=== PATIENT | female | born 1935 | race Caucasian/White ===

== ENCOUNTER 2016-10-13 10:26 | Inpatient (IN) | payer MEDICARE ==
[2016-10-13 11:14] LABS: HEMATOCRIT 34.4 % (36.0-47.0); HEMOGLOBIN 10.8 g/dL (12.0-15.5); MEAN CORPUSCULAR HEMOGLOBIN 26.9 pg (27.0-33.4); MEAN CORPUSCULAR HGB CONC 31.3 g/dL (32.0-36.0); MEAN CORPUSCULAR VOLUME 86 fl (80-97); RED CELL DISTRIBUTION WIDTH 15.9 % (11.5-14.0); WHITE BLOOD COUNT 19.8 10^3/uL (4.0-10.5)
[2016-10-13] MEDS ORDERED: IPRATROPIUM/ALBUTEROL 0.5-2.5 MG/3 ML AMPUL NEB ONE (11:15)
[2016-10-13 11:19] LABS: PROTHROMBIN TIME 13.4 SEC (11.4-15.4)
--- NOTE | 2016-10-13 11:31 | RADIOLOGY REPORT (SQ) ---
EXAM DESCRIPTION: CHEST PA/LAT COMPLETED DATE/TIME: 10/13/2016 11:10 am REASON FOR STUDY: fever altered COMPARISON: 03/27/2016. NUMBER OF VIEWS: Two view. TECHNIQUE: Frontal and lateral radiographic views of the chest acquired. LIMITATIONS: None. FINDINGS: LUNGS AND PLEURA: Chronic interstitial scarring. No lobar infiltrates, masses or pneumoth orax. No pleural effusion. Attenuated blood vessels and flattened rosalind-diaphragms. MEDIASTINUM AND HILAR STRUCTURES: No masses. No contour abnormalities. HEART AND VASCULAR STRUCTURES: Heart normal in size and contour. No evidence for failure. BONES: No acute findings. HARDWARE: None in the chest. OTHER: No other significant finding. IMPRESSION: COPD. CHRONIC SCARRING. NO DEFINITE ACUTE RADIOGRAPHIC FINDING IN THE CHEST. TECHNICAL DOCUMENTATION: JOB ID: [id number] [employer]- All Rights Reserved
--- NOTE | 2016-10-13 11:33 | ER Document Report ---
ED General - General Chief Complaint: Breathing Difficulty Stated Complaint: RESPIRATORY DISTRESS Time Seen by Provider: 10/13/16 10:32 Mode of Arrival: Medic Information source: Patient, Relative, Emergency Med Personnel Notes: 81-year-old female presents with complaints of fever weakness shortness of breath, noted to have symptoms over the past few days. Pt on 2L nc at home, pt was hospice last year now dnr. TRAVEL OUTSIDE OF THE [place] IN LAST 30 DAYS: No - HPI Onset: Other Onset/Duration: Persistent Quality of pain: No pain Severity: Mild Pain Level: Denies Associated symptoms: Nonproductive cough, Fever, Shortness of breath, Weakness Exacerbated by: Denies Relieved by: Denies Similar symptoms previously: Yes Recently seen / treated by doctor: Yes - Related Data Allergies/Adverse Reactions: aspirin [Aspirin] Allergy (Verified 10/13/16 11:03) fluticasone propionate [From Advair Diskus] Allergy (Verified 10/13/16 11:03) latex Allergy (Verified 10/13/16 11:03) RASH Penicillins Allergy (Verified 10/13/16 11:03) salmeterol xinafoate [From Advair Diskus] Allergy (Verified 10/13/16 11:03) lorazepam [From Ativan] Adverse Reaction (Verified 10/13/16 11:03) Confusion Irritability midazolam HCl [From Versed] Adverse Reaction (Verified 10/13/16 11:03) Confusion Irritability Past Medical History - Social History Smoking Status: Former Smoker Cigarette use (# per day): Yes Chew tobacco use (# tins/day): No Smoking Education Provided: No Frequency of alcohol use: None Drug Abuse: None Family History: Hypertension - Past Medical History Cardiac Medical History: Reports: Hx Congestive Heart Failure, Hx Coronary Artery Disease, Hx Hypertension, Hx Pulmonary Embolism Pulmonary Medical History: Reports: Hx Asthma, Hx Bronchitis, Hx COPD, Hx Pneumonia Endocrine Medical History: Reports: Hx Hyperthyroidism - meds recently adjusted , recent wt. loss Renal/ Medical History: Reports: Hx Kidney Stones GI Medical History: Reports: Hx Diverticulitis, Hx Gastroesophageal Reflux Disease, Hx Hiatal Hernia, Hx Ulcer Musculoskeltal Medical History: Reports Hx Arthritis, Reports Hx Fibromyalgia Past Surgical History: Reports: Hx Appendectomy, Hx Cholecystectomy, Hx Hysterectomy, Hx Tonsillectomy - Immunizations Hx Diphtheria, Pertussis, Tetanus Vaccination: Yes Hx Pneumococcal Vaccination: 04/22/11 Review of Systems - Review of Systems Notes: PHYSICAL EXAMINATION: GENERAL: chronically ill appearing female in mild resp distress HEAD: Atraumatic, normocephalic. EYES: Pupils equal round and reactive to light, extraocular movements intact, conjunctiva are normal. ENT: Nares patent, oropharynx clear without exudates. Moist mucous membranes. NECK: Normal range of motion, supple without lymphadenopathy LUNGS: coarse wheezing all throughout HEART: Regular rate and rhythm without murmurs ABDOMEN: Soft, nontender, nondistended abdomen. No guarding, no rebound. No masses appreciated. Female : deferred Musculoskeletal: Normal range of motion, no pitting or edema. No cyanosis. NEUROLOGICAL: Cranial nerves grossly intact. Normal speech, normal gait. Normal sensory, motor exams PSYCH: Normal mood, normal affect. SKIN: Warm, Dry, normal turgor, no rashes or lesions noted. Physical Exam - Vital signs Vitals: Resp Pulse Ox 26 H 2 L 10/13/16 10:30 10/13/16 10:30 Course - Re-evaluation Re-evalutation: 10/13/16 11:33 Lab work imaging is pending at this time, patient septic workup pending 10/13/16 11:59 Chest x-ray is consistent with COPD, white count is noted to be elevated 19.8, patient's blood gas notes acidosis. I will admit patient to the hospitalist service 10/13/16 12:01 bipap ordered immediately - Vital Signs Vital signs: Temp Pulse Resp BP Pulse Ox 26 H 143/75 H 96 10/13/16 11:14 10/13/16 11:14 10/13/16 11:14 - Laboratory Result Diagrams: 10/13/16 10:43 10/13/16 10:43 Laboratory results interpreted by me: 10/13/16 10/13/16 10/13/16 10:43 10:43 11:30 WBC 19.8 H Hgb 10.8 L Hct 34.4 L MCH 26.9 L MCHC 31.3 L RDW 15.9 H Abs Neuts (Manual) 13.3 H Abs Monocytes (Manual) 2.4 H Carbonic Acid 1.82 H ABG pH 7.19 L* ABG pCO2 60.3 H ABG pO2 70.0 L ABG O2 Saturation 89.4 L Carbon Dioxide 21 L BUN 30 H Creatinine 1.50 H Est GFR ( Amer) 40 L Est GFR (Non-Af Amer) 33 L Glucose 131 H Direct Bilirubin 0.5 H Alkaline Phosphatase 167 H - Diagnostic Test Radiology reviewed: Image reviewed, Reports reviewed - copd exacerbation Critical Care Note - Critical Care Note Total time excluding time spent on procedures (mins): 33 Comments: 33 minutes of critical care time spent in direct contact evaluating and reevaluating the patient, treating symptoms, reviewing labs and studies and speaking with family and consultants excluding any procedures Discharge - Discharge Clinical Impression: DNR (do not resuscitate), Hypoxemia, Respiratory acidosis Pneumonia Qualifiers: Pneumonia type: due to unspecified organism Laterality: unspecified laterality Lung location: unspecified part of lung Qualified Code(s): J18.9 - Pneumonia, unspecified organism Condition: Critical Disposition: ADMITTED INPATIENT Admitting Provider: Hospitalist Unit Admitted: Telemetry
[2016-10-13 11:34] LABS: ALANINE AMINOTRANSFERASE 51 U/L (9-52); ALBUMIN 3.7 g/dL (3.5-5.0); ALKALINE PHOSPHATASE 167 U/L (38-126); ANION GAP 16 (5-19); ASPARTATE AMINO TRANSFERASE 26 U/L (14-36); BILIRUBIN,DIRECT 0.5 mg/dL (0.0-0.4); BILIRUBIN,TOTAL 0.6 mg/dL (0.2-1.3); BLOOD UREA NITROGEN 30 mg/dL (7-20); CALCIUM 9.6 mg/dL (8.4-10.2); CARBON DIOXIDE 21 mmol/L (22-30); CHLORIDE 103 mmol/L (98-107); GLUCOSE 131 mg/dL (75-110); POTASSIUM 4.3 mmol/L (3.6-5.0); SODIUM 139.7 mmol/L (137-145); TOTAL PROTEIN 6.6 g/dL (6.3-8.2)
[2016-10-13 11:38] LABS: BAND NEUTROPHILS % (MANUAL) 5 % (3-5); BASOPHILS % (MANUAL) 0 % (0-2); EOSINOPHILS % (MANUAL) 0 % (0-6); LYMPHOCYTES % (MANUAL) 21 % (13-45); TOTAL CELLS COUNTED 100
[2016-10-13 11:41] LABS: ANISOCYTOSIS SLIGHT; BURR CELLS SLIGHT; HYPOCHROMASIA SLIGHT; OVALOCYTES 1+; PLATELET CLUMPS PRESENT; POIKILOCYTOSIS 1+; POLYCHROMASIA SLIGHT; TARGET CELLS SLIGHT; TOXIC GRANULATION SLIGHT; TOXIC VACUOLATION PRESENT
[2016-10-13] MEDS ORDERED: NORMAL SALINE 1000 ML 1,000 ML IV ONE ×2 (11:41→11:55)
[2016-10-13 11:45] LABS: ARTERIAL BLOOD BASE EXCESS -6.1 mmol/L; ARTERIAL BLOOD O2 SATURATION 89.4 % (94-98)
[2016-10-13] MEDS ORDERED: LEVOFLOXACIN 750 MG/D5W RTU 150 ML IV ONE (11:55)
[2016-10-13] MEDS ORDERED: METHYLPREDNISOLONE INJ 125 MG/2 ML SDV IV ONE (11:58)
[2016-10-13] MEDS ORDERED: ONDANSETRON HCL INJ/PF 4 MG/2 ML SDV IV PRN (12:14)
[2016-10-13] MEDS ORDERED: MAG HYDROX/AL HYDROX/SIMETH SUSP 30 ML UDCUP PO PRN (12:14)
[2016-10-13] MEDS ORDERED: IPRATROPIUM/ALBUTEROL 0.5-2.5 MG/3 ML AMPUL NEB PRN (12:14)
[2016-10-13] MEDS ORDERED: ACETAMINOPHEN 650 MG SUPP.RECT PR PRN (12:14)
[2016-10-13] MEDS ORDERED: ENOXAPARIN SODIUM INJ 30 MG/0.3 ML DISP.SYRIN SUBCUT ONE (13:00)
--- NOTE | 2016-10-13 13:30 | EKG REPORT ---
SEVERITY:- ABNORMAL ECG - SINUS TACHYCARDIA BORDERLINE RIGHT AXIS DEVIATION LA ABNORMALITY : Confirmed by: Clemente Garcia MD 13-Oct-2016 13:29:07
--- NOTE | 2016-10-13 14:38 | PDOC H&P ---
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 Daughter notes over the last 3 days a decline in her overall status. She has had increasing somnolence , poor appetite and increasing confusion. She normally has a congested cough daily, and daughter relates this may be somewhat worse over the last 3 days. Daughter called EMS morning when she was unable to awaken her mother from sleep. Patient was noted to be hypercapnic with a PCO2 in the 60s and her presenting ABG. She is a DNR per daughter, she was placed on BiPAP therapy by the ER physician. She was noted to be tachycardic, with a heart rate in the 120 's, tachypneic and altered mental status on arrival. Past Medical History Cardiac Medical History: Reports: Congestive Heart Failure, Coronary Artery Disease, Hypertension, Pulmonary Embolism Pulmonary Medical History: Reports: Asthma, Bronchitis, Chronic Obstructive Pulmonary Disease (COPD), Pneumonia EENT Medical History: Reports: None Neurological Medical History: Reports: None Endocrine Medical History: Reports: None, Hyperthyroidism - meds recently adjusted, recent wt. loss Renal/ Medical History: Reports: None Malignancy Medical History: Reports: None GI Medical History: Reports: Diverticulitis, Gastroesophageal Reflux Disease, Hiatal Hernia Musculoskeltal Medical History: Reports: Arthritis, Fibromyalgia Skin Medical History: Reports: None Psychiatric Medical History: Reports: Tobacco Dependency Traumatic Medical History: Reports: None Hematology: Reports: Anemia - Chronic disease Past Surgical History Past Surgical History: Reports: Appendectomy, Cholecystectomy, Hysterectomy, Tonsillectomy Social History Information Source: Relative Lives with: Family Smoking Status: Current Some Day Smoker Cigarettes Packs Per Day: 0.5 Number of Years Smokin Last Time Smoked: yesterday Frequency of Alcohol Use: None Hx Recreational Drug Use: No Drugs: None Hx Prescription Drug Abuse: No - Advance Directive Resuscitation Status: Do Not Resuscitate Surrogate healthcare decision maker:: Wilma Saenz Family History Family History: COPD, Hypertension Parental Family History Reviewed: Yes Children Family History Reviewed: Yes Sibling(s) Family History Reviewed.: Yes Medication/Allergy Home Medications: Amlodipine Besylate [Norvasc 10 mg Tablet] 5 mg PO DAILY 10/13/16 Cyanocobalamin (Vitamin B-12) [Vitamin B-12 1000 mcg Tablet] 1,000 mcg PO DAILY 10/13/16 Cyproheptadine HCl [Periactin 4 mg Tablet] 4 mg PO DAILY 10/13/16 Esomeprazole Magnesium [Nexium] 40 mg PO DAILY 10/13/16 Ipratropium/Albuterol Sulfate [Combivent Respimat 4 gm Mdi] 1 puff IH QID Mirtazapine [Remeron] 15 mg PO ACHS 10/13/16 Oxycodone HCl/Acetaminophen [Percocet 5-325 mg Tablet] 1 tab PO TIDP PRN Ropinirole HCl [Requip] 0.5 mg PO QHS 10/13/16 Allergies/Adverse Reactions: aspirin [Aspirin] Allergy (Verified 10/13/16 11:03) fluticasone propionate [From Advair Diskus] Allergy (Verified 10/13/16 11:03) latex Allergy (Verified 10/13/16 11:03) RASH Penicillins Allergy (Verified 10/13/16 11:03) salmeterol xinafoate [From Advair Diskus] Allergy (Verified 10/13/16 11:03) lorazepam [From Ativan] Adverse Reaction (Verified 10/13/16 11:03) Confusion Irritability midazolam HCl [From Versed] Adverse Reaction (Verified 10/13/16 11:03) Confusion Irritability Review of Systems ROS unobtainable: Due to mental status Physical Exam Vital Signs: Temp Pulse Resp BP Pulse Ox 19 108/61 100 10/13/16 13:01 10/13/16 13:01 10/13/16 13:01 General appearance: PRESENT: no acute distress, thin, well-developed Head exam: PRESENT: atraumatic, normocephalic Eye exam: PRESENT: conjunctiva pink, EOMI, PERRLA. ABSENT: scleral icterus Ear exam: PRESENT: normal external ear exam Mouth exam: PRESENT: moist, tongue midline Neck exam: ABSENT: carotid bruit, JVD, lymphadenopathy, thyromegaly Respiratory exam: PRESENT: crackles, decreased breath sounds, symmetrical, unlabored. ABSENT: rales, rhonchi, wheezes Cardiovascular exam: PRESENT: RRR. ABSENT: diastolic murmur, rubs, systolic murmur Pulses: PRESENT: normal dorsalis pedis pul Vascular exam: PRESENT: normal capillary refill GI/Abdominal exam: PRESENT: normal bowel sounds, soft. ABSENT: distended, guarding, mass, organolmegaly, rebound, tenderness Rectal exam: PRESENT: deferred Extremities exam: PRESENT: full ROM. ABSENT: calf tenderness, clubbing, pedal edema Neurological exam: PRESENT: altered, CN II-XII grossly intact Psychiatric exam: PRESENT: flat affect, other - Nonverbal at the present time Skin exam: PRESENT: dry, skin tears, other - poor skin turgor Results Impressions: Chest X-Ray 10/13/16 10:32 IMPRESSION: COPD. CHRONIC SCARRING. NO DEFINITE ACUTE RADIOGRAPHIC FINDING IN THE CHEST. Assessment & Plan - Diagnosis (1) Sepsis Qualifiers: Sepsis type: sepsis due to unspecified organism Qualified Code(s): A41.9 - Sepsis, unspecified organism Is this a current diagnosis for this admission?: YesPlan: Patient is tachycardic, tachypneic, hypoxic with significant leucocytosis. Started on IV antibiotics and fluid resuscitation (2) Acute and chronic respiratory failure with hypercapnia Is this a current diagnosis for this admission?: YesPlan: BIPAP therapy, nebulizers, and IV steroids (3) COPD exacerbation Is this a current diagnosis for this admission?: YesPlan: IV steroids and nebulizer treatments, BIPAP support (4) Altered mental status Qualifiers: Altered mental status type: unspecified Qualified Code(s): R41.82 - Altered mental status, unspecified Is this a current diagnosis for this admission?: YesPlan: Secondary to hypercapnea and underlying dementia (5) Respiratory acidosis Is this a current diagnosis for this admission?: YesPlan: BIPAP therapy until mentation improves (6) Dementia Qualifiers: Dementia type: unspecified type Dementia behavioral disturbance: without behavioral disturbance Qualified Code(s): F03.90 - Unspecified dementia without behavioral disturbance Is this a current diagnosis for this admission?: Yes (7) Tobacco abuse Is this a current diagnosis for this admission?: Yes (8) Underweight due to inadequate caloric intake Is this a current diagnosis for this admission?: YesPlan: Diet will be liberalized with protein supplements. Daughter states she eats very little (9) DNR (do not resuscitate) Is this a current diagnosis for this admission?: YesPlan: Patient was on hospice service. Patient is a Do Not Resuscitate per daughter (10) Hypertension Qualifiers: Hypertension type: essential hypertension Qualified Code(s): I10 - Essential (primary) hypertension Is this a current diagnosis for this admission?: YesPlan: Continue home medications once mentation improves patient is presently normotensive - Time Time Spent: 50 to 70 Minutes Critical Time spent with patient: 25-34 minutes Medications reviewed and adjusted accordingly: Yes
[2016-10-13] MEDS: NORMAL SALINE 1000 ML 1,000 ML IV PRN (16:11)
[2016-10-13] MEDS: IPRATROPIUM/ALBUTEROL 0.5-2.5 MG/3 ML AMPUL NEB SCH ×2 (16:31→23:31)
[2016-10-13] MEDS ORDERED: METOPROLOL TARTRATE PF/INJ 5 MG/5 ML SDV IV ONE (17:53)
[2016-10-13] MEDS: DOCUSATE SODIUM 100 MG CAPSULE PO SCH (18:05)
[2016-10-13] MEDS: MIRTAZAPINE 15 MG TABLET PO SCH ×2 (18:14→22:58)
[2016-10-13 19:44] LABS: ARTERIAL BLOOD BASE EXCESS -5.4 mmol/L; ARTERIAL BLOOD O2 SATURATION 89.1 % (94-98)
[2016-10-13] MEDS: OXYCODONE-ACETAMINOPHEN 5-325 MG TABLET PO PRN (20:46)
[2016-10-13 21:43] LABS: APPEARANCE,URINE SLIGHTLY-CLOUDY; BILIRUBIN,URINE NEGATIVE (NEGATIVE); GLUCOSE, URINE NEGATIVE (NEGATIVE); KETONES,URINE NEGATIVE (NEGATIVE); LEUKOCYTE ESTERASE,URINE NEGATIVE (NEGATIVE); NITRITE,URINE NEGATIVE (NEGATIVE); PROTEIN,URINE 100 mg/dL (NEGATIVE); UROBILINOGEN,URINE NEGATIVE mg/dL (<2.0)
[2016-10-13] MEDS ORDERED: CEFEPIME 2 GM/D5W RTU 50 ML IV SCH (22:00)
[2016-10-13] MEDS ORDERED: (PENDING PHARMACY ID) (Ropinirole Hcl [Requip] 0.5 MG) PO SCH (22:00)
[2016-10-13] MEDS: ROPINIROLE HCL 0.25 MG TABLET PO SCH (22:58)
[2016-10-13] MEDS: CEFEPIME HCL 2 GM in DEXTROSE 5%-WATER 50 ML IV SCH (23:02)
[2016-10-13] MEDS: METHYLPREDNISOLONE INJ 40 MG/1 ML SDV IV SCH (23:08)
[2016-10-14] MEDS: NORMAL SALINE 1000 ML 1,000 ML IV PRN (03:08)
[2016-10-14 04:44] LABS: ABSOLUTE MONOCYTES (AUTO) 0.8 10^3/uL (0.1-1.4); ABSOLUTE NEUT (AUTO) 10.9 10^3/uL (1.7-8.2); BASOPHILS % (AUTO) 0.1 % (0-2); HEMATOCRIT 27.1 % (36.0-47.0); HGB HCT DIFFERENCE -1.6; LYMPHOCYTES % (AUTO) 7.6 % (13-45); MEAN CORPUSCULAR HEMOGLOBIN 26.4 pg (27.0-33.4); MEAN CORPUSCULAR HGB CONC 31.3 g/dL (32.0-36.0); MEAN CORPUSCULAR VOLUME 84 fl (80-97); MONOCYTES % (AUTO) 6.5 % (3-13); RED BLOOD COUNT 3.21 10^6/uL (3.72-5.28); RED CELL DISTRIBUTION WIDTH 15.8 % (11.5-14.0); SEGMENTED NEUTROPHILS % (AUTO) 85.8 % (42-78); WHITE BLOOD COUNT 12.7 10^3/uL (4.0-10.5)
[2016-10-14 04:57] LABS: ANION GAP 11 (5-19); BLOOD UREA NITROGEN 31 mg/dL (7-20); CALCIUM 9.4 mg/dL (8.4-10.2); CARBON DIOXIDE 20 mmol/L (22-30); CHLORIDE 110 mmol/L (98-107); CREATININE RESULT 1.34 mg/dL (0.52-1.25); GLUCOSE 144 mg/dL (75-110); MAGNESIUM 1.6 mg/dL (1.6-2.3); POTASSIUM 4.5 mmol/L (3.6-5.0); SODIUM 140.5 mmol/L (137-145)
[2016-10-14 05:00] LABS: HEMOGLOBIN 8.5 g/dL (12.0-15.5)
[2016-10-14] MEDS: OXYCODONE-ACETAMINOPHEN 5-325 MG TABLET PO PRN ×3 (07:04→22:52)
[2016-10-14] MEDS: METHYLPREDNISOLONE INJ 40 MG/1 ML SDV IV SCH ×3 (07:08→21:17)
[2016-10-14] MEDS: ENOXAPARIN SODIUM INJ 30 MG/0.3 ML DISP.SYRIN SUBCUT SCH (08:23)
[2016-10-14] MEDS: IPRATROPIUM/ALBUTEROL 0.5-2.5 MG/3 ML AMPUL NEB SCH ×2 (08:26→16:44)
[2016-10-14] MEDS: DOCUSATE SODIUM 100 MG CAPSULE PO SCH ×2 (09:49→17:26)
[2016-10-14] MEDS: AMLODIPINE BESYLATE 10 MG TABLET PO SCH (09:50)
[2016-10-14] MEDS: CYANOCOBALAMIN (VITAMIN B-12) 1,000 MCG TABLET PO SCH (09:50)
[2016-10-14] MEDS: CEFEPIME HCL 2 GM in DEXTROSE 5%-WATER 50 ML IV SCH (09:51)
[2016-10-14] MEDS ORDERED: CYPROHEPTADINE HCL 4 MG TABLET PO SCH (10:00)
--- NOTE | 2016-10-14 11:16 | PDOC PROGRESS REPORT ---
Subjective Progress Note for:: 10/14/16 Subjective:: Patient seen on morning rounds. She is off BIPAP at the present time, on nasal cannula eating breakfast. She states her breathing is better than yesterday. She is much more alert and no longer tachypneic or tachycardic. She remains confused which is her baseline mentation. Review of systems is unobtainable due to mentation. Physical Exam Vital Signs: Temp Pulse Resp BP Pulse Ox 98.4 F 90 24 H 124/62 94 10/14/16 08:00 10/14/16 08:27 10/14/16 08:27 10/14/16 08:00 10/14/16 08:27 Intake & Output 10/13/16 10/14/16 10/15/16 06:59 06:59 06:59 Intake Total 250 Balance 250 Weight 40 kg General appearance: PRESENT: no acute distress, thin, well-developed Head exam: PRESENT: atraumatic, normocephalic Eye exam: PRESENT: conjunctiva pink, EOMI, PERRLA. ABSENT: scleral icterus Ear exam: PRESENT: normal external ear exam Mouth exam: PRESENT: moist, tongue midline Neck exam: ABSENT: carotid bruit, JVD, lymphadenopathy, thyromegaly Respiratory exam: PRESENT: decreased breath sounds, rhonchi, symmetrical, unlabored Cardiovascular exam: PRESENT: RRR. ABSENT: diastolic murmur, rubs, systolic murmur Pulses: PRESENT: normal dorsalis pedis pul Vascular exam: PRESENT: normal capillary refill GI/Abdominal exam: PRESENT: normal bowel sounds, soft. ABSENT: distended, guarding, mass, organolmegaly, rebound, tenderness Rectal exam: PRESENT: deferred Extremities exam: PRESENT: full ROM. ABSENT: calf tenderness, clubbing, pedal edema Neurological exam: PRESENT: alert, altered, oriented to person, CN II-XII grossly intact Psychiatric exam: PRESENT: appropriate affect, normal mood. ABSENT: homicidal ideation, suicidal ideation Skin exam: PRESENT: dry, intact, warm. ABSENT: cyanosis, rash Results Laboratory Results: 10/14/16 04:24 10/14/16 04:24 10/13/16 10/13/16 10/14/16 19:30 21:15 04:24 WBC 12.7 H RBC 3.21 L Hgb 8.5 L D Hct 27.1 L MCV 84 MCH 26.4 L MCHC 31.3 L RDW 15.8 H Plt Count 268 Seg Neutrophils % 85.8 H Lymphocytes % 7.6 L Monocytes % 6.5 Eosinophils % 0.0 Basophils % 0.1 Absolute Neutrophils 10.9 H Absolute Lymphocytes 1.0 Absolute Monocytes 0.8 Absolute Eosinophils 0.0 Absolute Basophils 0.0 Carbonic Acid 1.44 H HCO3/H2CO3 Ratio 14:1 ABG pH 7.27 L ABG pCO2 47.9 H ABG pO2 63.6 L ABG HCO3 21.4 ABG O2 Saturation 89.1 L ABG Base Excess -5.4 FiO2 30% Sodium Potassium Chloride Carbon Dioxide Anion Gap BUN Creatinine Est GFR ( Amer) Est GFR (Non-Af Amer) Glucose Calcium Magnesium Urine Color YELLOW Urine Appearance SLIGHTLY-CLOUDY Urine pH 5.0 Ur Specific [place] 1.010 Urine Protein 100 H Urine Glucose (UA) NEGATIVE Urine Ketones NEGATIVE Urine Blood NEGATIVE Urine Nitrite NEGATIVE Ur Leukocyte Esterase NEGATIVE Urine WBC (Auto) 2 Urine RBC (Auto) 1 10/14/16 04:24 WBC RBC Hgb Hct MCV MCH MCHC RDW Plt Count Seg Neutrophils % Lymphocytes % Monocytes % Eosinophils % Basophils % Absolute Neutrophils Absolute Lymphocytes Absolute Monocytes Absolute Eosinophils Absolute Basophils Carbonic Acid HCO3/H2CO3 Ratio ABG pH ABG pCO2 ABG pO2 ABG HCO3 ABG O2 Saturation ABG Base Excess FiO2 Sodium 140.5 Potassium 4.5 Chloride 110 H Carbon Dioxide 20 L Anion Gap 11 BUN 31 H Creatinine 1.34 H Est GFR ( Amer) 46 L Est GFR (Non-Af Amer) 38 L Glucose 144 H Calcium 9.4 Magnesium 1.6 Urine Color Urine Appearance Urine pH Ur Specific [place] Urine Protein Urine Glucose (UA) Urine Ketones Urine Blood Urine Nitrite Ur Leukocyte Esterase Urine WBC (Auto) Urine RBC (Auto) Impressions: Chest X-Ray 10/13/16 10:32 IMPRESSION: COPD. CHRONIC SCARRING. NO DEFINITE ACUTE RADIOGRAPHIC FINDING IN THE CHEST. Assessment & Plan - Diagnosis (1) Sepsis Qualifiers: Sepsis type: sepsis due to unspecified organism Qualified Code(s): A41.9 - Sepsis, unspecified organism Is this a current diagnosis for this admission?: YesPlan: Patient is tachycardic (2) Acute and chronic respiratory failure with hypercapnia Is this a current diagnosis for this admission?: YesPlan: BIPAP therapy, nebulizers, and IV steroids (3) COPD exacerbation Is this a current diagnosis for this admission?: YesPlan: IV steroids and nebulizer treatments, BIPAP support (4) Altered mental status Qualifiers: Altered mental status type: unspecified Qualified Code(s): R41.82 - Altered mental status, unspecified Is this a current diagnosis for this admission?: YesPlan: Secondary to hypercapnea and underlying dementia (5) Respiratory acidosis Is this a current diagnosis for this admission?: YesPlan: BIPAP therapy until mentation improves (6) Dementia Qualifiers: Dementia type: unspecified type Dementia behavioral disturbance: without behavioral disturbance Qualified Code(s): F03.90 - Unspecified dementia without behavioral disturbance Is this a current diagnosis for this admission?: Yes (7) Tobacco abuse Is this a current diagnosis for this admission?: Yes (8) Underweight due to inadequate caloric intake Is this a current diagnosis for this admission?: YesPlan: Diet will be liberalized with protein supplements. Daughter states she eats very little. Nutritional supplements provided with each meal (9) DNR (do not resuscitate) Is this a current diagnosis for this admission?: YesPlan: Patient was on hospice service. Patient is a Do Not Resuscitate per daughter (10) Hypertension Qualifiers: Hypertension type: essential hypertension Qualified Code(s): I10 - Essential (primary) hypertension Is this a current diagnosis for this admission?: YesPlan: Continue home medications once mentation improves patient is presently normotensive - Time Time Spent with patient: 25-34 minutes Medications reviewed and adjusted accordingly: Yes Anticipated discharge: Home with Homehealth
[2016-10-14] MEDS: MIRTAZAPINE 15 MG TABLET PO SCH (11:52)
[2016-10-14] MEDS: GUAIFENESIN SYRP 200 MG/10 ML UDC PO PRN (21:16)
[2016-10-14] MEDS: ROPINIROLE HCL 0.25 MG TABLET PO SCH (21:16)
[2016-10-15] MEDS: IPRATROPIUM/ALBUTEROL 0.5-2.5 MG/3 ML AMPUL NEB SCH ×4 (00:16→23:54)
[2016-10-15] MEDS: OXYCODONE-ACETAMINOPHEN 5-325 MG TABLET PO PRN ×2 (05:59→16:40)
[2016-10-15] MEDS: METHYLPREDNISOLONE INJ 40 MG/1 ML SDV IV SCH (05:59)
--- NOTE | 2016-10-15 08:25 | PDOC PROGRESS REPORT ---
Subjective Progress Note for:: 10/15/16 Subjective:: Patient seen on morning rounds. She is out of bed sitting in bedside chair. She states her breathing is better than yesterday. She has a productive cough with thick yellow mucous being raised. She is much more alert and no longer tachypneic or tachycardic. She is refusing BIPAP therapy. She remains confused which is her baseline mentation. Review of systems is otherwise unremarkable. Physical Exam Vital Signs: Temp Pulse Resp BP Pulse Ox 98.9 F 105 H 26 H 146/74 H 88 L 10/15/16 05:04 10/15/16 05:04 10/15/16 05:04 10/15/16 05:04 10/15/16 05:04 Intake & Output 10/14/16 10/15/16 10/16/16 06:59 06:59 06:59 Intake Total 250 2113 Balance 250 2113 Weight 40 kg 41.2 kg General appearance: PRESENT: no acute distress, thin, well-developed Head exam: PRESENT: atraumatic, normocephalic Eye exam: PRESENT: conjunctiva pink, EOMI, PERRLA. ABSENT: scleral icterus Ear exam: PRESENT: normal external ear exam Mouth exam: PRESENT: moist, tongue midline Neck exam: ABSENT: carotid bruit, JVD, lymphadenopathy, thyromegaly Respiratory exam: PRESENT: crackles - right base, rhonchi, symmetrical, unlabored Cardiovascular exam: PRESENT: RRR. ABSENT: diastolic murmur, rubs, systolic murmur Pulses: PRESENT: normal dorsalis pedis pul Vascular exam: PRESENT: normal capillary refill GI/Abdominal exam: PRESENT: normal bowel sounds, soft. ABSENT: distended, guarding, mass, organolmegaly, rebound, tenderness Rectal exam: PRESENT: deferred Extremities exam: PRESENT: full ROM. ABSENT: calf tenderness, clubbing, pedal edema Neurological exam: PRESENT: alert, awake, oriented to person, oriented to place , oriented to situation, CN II-XII grossly intact Psychiatric exam: PRESENT: appropriate affect, normal mood. ABSENT: homicidal ideation, suicidal ideation Skin exam: PRESENT: dry, intact, warm. ABSENT: cyanosis, rash Results Laboratory Results: 10/14/16 04:24 10/14/16 04:24 Impressions: Chest X-Ray 10/13/16 10:32 IMPRESSION: COPD. CHRONIC SCARRING. NO DEFINITE ACUTE RADIOGRAPHIC FINDING IN THE CHEST. Assessment & Plan - Diagnosis (1) Sepsis Qualifiers: Sepsis type: sepsis due to unspecified organism Qualified Code(s): A41.9 - Sepsis, unspecified organism Is this a current diagnosis for this admission?: YesPlan: Tachycardia, tachypnea and hypotension resolved (2) Acute and chronic respiratory failure with hypercapnia Is this a current diagnosis for this admission?: YesPlan: BIPAP therapy, nebulizers, and IV steroids (3) COPD exacerbation Is this a current diagnosis for this admission?: YesPlan: IV steroids and nebulizer treatments, BIPAP support (4) Altered mental status Qualifiers: Altered mental status type: unspecified Qualified Code(s): R41.82 - Altered mental status, unspecified Is this a current diagnosis for this admission?: YesPlan: Secondary to hypercapnea and underlying dementia (5) Respiratory acidosis Is this a current diagnosis for this admission?: YesPlan: BIPAP therapy until mentation improves (6) Dementia Qualifiers: Dementia type: unspecified type Dementia behavioral disturbance: without behavioral disturbance Qualified Code(s): F03.90 - Unspecified dementia without behavioral disturbance Is this a current diagnosis for this admission?: Yes (7) Tobacco abuse Is this a current diagnosis for this admission?: YesPlan: Nicotine patch (8) Underweight due to inadequate caloric intake Is this a current diagnosis for this admission?: YesPlan: Diet will be liberalized with protein supplements. Daughter states she eats very little. Nutritional supplements provided with each meal (9) DNR (do not resuscitate) Is this a current diagnosis for this admission?: YesPlan: Patient was on hospice service. Patient is a Do Not Resuscitate per daughter (10) Hypertension Qualifiers: Hypertension type: essential hypertension Qualified Code(s): I10 - Essential (primary) hypertension Is this a current diagnosis for this admission?: YesPlan: Continue home medications once mentation improves patient is presently normotensive - Time Time Spent with patient: 25-34 minutes Critical Time spent with patient: 15-24 minutes Smoking Cessation Education: 3 to 10 minutes Medications reviewed and adjusted accordingly: Yes Anticipated discharge: Home with Homehealth
[2016-10-15] MEDS ORDERED: CEFEPIME 1 GM/D5W RTU 1 GM/50 ML RTUPB IV SCH (10:00)
[2016-10-15] MEDS: CYANOCOBALAMIN (VITAMIN B-12) 1,000 MCG TABLET PO SCH (10:03)
[2016-10-15] MEDS: AMLODIPINE BESYLATE 10 MG TABLET PO SCH (10:03)
[2016-10-15] MEDS: DOCUSATE SODIUM 100 MG CAPSULE PO SCH ×2 (10:03→18:12)
[2016-10-15] MEDS: NICOTINE 14 MG/24 HR PATCH.TD24 TD SCH (10:06)
[2016-10-15] MEDS: ENOXAPARIN SODIUM INJ 30 MG/0.3 ML DISP.SYRIN SUBCUT SCH (10:06)
[2016-10-15] MEDS: PREDNISONE 20 MG TABLET PO SCH (10:08)
[2016-10-15] MEDS: ROPINIROLE HCL 0.25 MG TABLET PO SCH (21:18)
[2016-10-15] MEDS: GUAIFENESIN SYRP 200 MG/10 ML UDC PO PRN (23:22)
[2016-10-16] MEDS: OXYCODONE-ACETAMINOPHEN 5-325 MG TABLET PO PRN (00:52)
[2016-10-16] MEDS ORDERED: LORAZEPAM INJ 2 MG/1 ML VIAL ONE (03:34)
[2016-10-16] MEDS ORDERED: HALOPERIDOL LACTATE INJ 5 MG/1 ML VIAL IV PRN (07:43)
[2016-10-16] MEDS: ENOXAPARIN SODIUM INJ 30 MG/0.3 ML DISP.SYRIN SUBCUT SCH (07:57)
[2016-10-16] MEDS: IPRATROPIUM/ALBUTEROL 0.5-2.5 MG/3 ML AMPUL NEB SCH ×3 (08:23→23:57)
[2016-10-16] MEDS: PREDNISONE 20 MG TABLET PO SCH ×2 (08:32→09:11)
[2016-10-16] MEDS: NICOTINE 14 MG/24 HR PATCH.TD24 TD SCH (08:32)
[2016-10-16] MEDS: CYANOCOBALAMIN (VITAMIN B-12) 1,000 MCG TABLET PO SCH (08:33)
[2016-10-16] MEDS: DOCUSATE SODIUM 100 MG CAPSULE PO SCH ×2 (08:33→20:18)
[2016-10-16] MEDS: AMLODIPINE BESYLATE 10 MG TABLET PO SCH (08:33)
--- NOTE | 2016-10-16 09:03 | PDOC PROGRESS REPORT ---
Subjective Progress Note for:: 10/16/16 Subjective:: Patient seen on morning rounds. She was extremely agitated and confused last night. Hitting nursing staff. She had to be restrained and was given Ativa IV. She is very lethargic this morning. She remains confused which is her baseline mentation. Review of systems is otherwise unremarkable. Physical Exam Vital Signs: Temp Pulse Resp BP Pulse Ox 98.4 F 95 16 164/94 H 92 10/16/16 07:40 10/16/16 08:23 10/16/16 08:23 10/16/16 07:40 10/16/16 08:23 Intake & Output 10/15/16 10/16/16 10/17/16 06:59 06:59 06:59 Intake Total 2113 1451 Output Total 2 Balance 2112 1449 Weight 41.2 kg 43.5 kg General appearance: PRESENT: no acute distress, thin, well-developed Head exam: PRESENT: atraumatic, normocephalic Eye exam: PRESENT: conjunctiva pale Ear exam: PRESENT: normal external ear exam Neck exam: PRESENT: carotid bruit Respiratory exam: PRESENT: rhonchi, symmetrical, unlabored Cardiovascular exam: PRESENT: RRR. ABSENT: diastolic murmur, rubs, systolic murmur Pulses: PRESENT: normal dorsalis pedis pul Vascular exam: PRESENT: normal capillary refill GI/Abdominal exam: PRESENT: normal bowel sounds, soft. ABSENT: distended, guarding, mass, organolmegaly, rebound, tenderness Rectal exam: PRESENT: deferred Extremities exam: PRESENT: full ROM. ABSENT: calf tenderness, clubbing, pedal edema Musculoskeletal exam: PRESENT: full ROM Neurological exam: PRESENT: altered, CN II-XII grossly intact, other - sedated from last night but arousable Skin exam: PRESENT: dry, skin tears, warm Results Laboratory Results: 10/14/16 04:24 10/14/16 04:24 10/13/16 20:55 Sputum Gram Stain - Final 10/13/16 20:55 Sputum Sputum Culture - Final C.albicans/C.dubliniensis Normal Catie Impressions: Chest X-Ray 10/13/16 10:32 IMPRESSION: COPD. CHRONIC SCARRING. NO DEFINITE ACUTE RADIOGRAPHIC FINDING IN THE CHEST. Assessment & Plan - Diagnosis (1) Sepsis Qualifiers: Sepsis type: sepsis due to unspecified organism Qualified Code(s): A41.9 - Sepsis, unspecified organism Is this a current diagnosis for this admission?: YesPlan: Resolved. She is no longer tachypneic or tachycardic (2) Acute and chronic respiratory failure with hypercapnia Is this a current diagnosis for this admission?: YesPlan: Improved. She is refusing BIPAP therapy, nebulizers, and IV steroids (3) COPD exacerbation Is this a current diagnosis for this admission?: YesPlan: IV steroids and nebulizer treatments, BIPAP support (4) Altered mental status Qualifiers: Altered mental status type: unspecified Qualified Code(s): R41.82 - Altered mental status, unspecified Is this a current diagnosis for this admission?: YesPlan: Baseline dementia,she became very agitated and combative last night. Will add lose dose risperdal (5) Respiratory acidosis Is this a current diagnosis for this admission?: YesPlan: BIPAP therapy until mentation improves (6) Dementia Qualifiers: Dementia type: unspecified type Dementia behavioral disturbance: without behavioral disturbance Qualified Code(s): F03.90 - Unspecified dementia without behavioral disturbance Is this a current diagnosis for this admission?: Yes (7) Tobacco abuse Is this a current diagnosis for this admission?: YesPlan: Nicotine patch (8) Underweight due to inadequate caloric intake Is this a current diagnosis for this admission?: YesPlan: Diet will be liberalized with protein supplements. Daughter states she eats very little. Nutritional supplements provided with each meal (9) DNR (do not resuscitate) Is this a current diagnosis for this admission?: YesPlan: Patient was on hospice service. Patient is a Do Not Resuscitate per daughter (10) Hypertension Qualifiers: Hypertension type: essential hypertension Qualified Code(s): I10 - Essential (primary) hypertension Is this a current diagnosis for this admission?: YesPlan: Continue home medications once mentation improves patient is presently normotensive - Time Time Spent with patient: 25-34 minutes Critical Time spent with patient: 15-24 minutes Medications reviewed and adjusted accordingly: Yes Anticipated discharge: Home with Homehealth
[2016-10-16] MEDS: RISPERIDONE 0.25 MG TABLET PO SCH (09:07)
[2016-10-16] MEDS: CEFUROXIME 500 MG TABLET PO SCH (09:09)
[2016-10-16] MEDS: LORAZEPAM INJ 2 MG/1 ML VIAL IV PRN ×2 (15:08→20:14)
[2016-10-16] MEDS ORDERED: METOPROLOL TARTRATE PF/INJ 5 MG/5 ML SDV IV ONE ×2 (16:07→16:15)
[2016-10-16] MEDS ORDERED: METOPROLOL SUCCINATE 25 MG TAB.SR.24H PO ONE (16:15)
--- NOTE | 2016-10-16 17:01 | EKG REPORT ---
SEVERITY:- ABNORMAL ECG - JUNCTIONAL TACHYCARDIA NONSPECIFIC INTRAVENTRICULAR CONDUCTION DELAY CONSIDER LEFT VENTRICULAR HYPERTROPHY BORDERLINE INFERIOR Q WAVES : Confirmed by: Clemente Garcia MD 16-Oct-2016 17:00:37
[2016-10-17] MEDS: LORAZEPAM INJ 2 MG/1 ML VIAL IV PRN ×2 (01:03→04:36)
[2016-10-17] MEDS: CEFUROXIME 500 MG TABLET PO SCH ×3 (01:05→16:49)
[2016-10-17] MEDS: RISPERIDONE 0.25 MG TABLET PO SCH ×3 (01:05→16:49)
[2016-10-17] MEDS: ROPINIROLE HCL 0.25 MG TABLET PO SCH ×2 (01:05→21:38)
[2016-10-17] MEDS: ENOXAPARIN SODIUM INJ 30 MG/0.3 ML DISP.SYRIN SUBCUT SCH (07:36)
[2016-10-17] MEDS: METOPROLOL SUCCINATE 25 MG TAB.SR.24H PO SCH (07:48)
[2016-10-17] MEDS: PREDNISONE 20 MG TABLET PO SCH (07:49)
[2016-10-17] MEDS: IPRATROPIUM/ALBUTEROL 0.5-2.5 MG/3 ML AMPUL NEB SCH ×3 (08:18→23:53)
[2016-10-17] MEDS: DOCUSATE SODIUM 100 MG CAPSULE PO SCH ×2 (11:20→16:48)
[2016-10-17] MEDS: AMLODIPINE BESYLATE 10 MG TABLET PO SCH (11:20)
[2016-10-17] MEDS: CYANOCOBALAMIN (VITAMIN B-12) 1,000 MCG TABLET PO SCH (11:20)
[2016-10-17] MEDS: NICOTINE 14 MG/24 HR PATCH.TD24 TD SCH (11:23)
--- NOTE | 2016-10-17 11:44 | PDOC PROGRESS REPORT ---
Subjective Progress Note for:: 10/17/16 Subjective:: Patient seen on morning rounds. She is presently on BIPAP and not agitated. She was confused on and off last night according to nursing, but not combative She is very lethargic this morning. She remains confused which is her baseline mentation. Review of systems is otherwise unobtainable due to mentation. Physical Exam Vital Signs: Temp Pulse Resp BP Pulse Ox 97.5 F 87 25 H 167/93 H 96 10/17/16 07:35 10/17/16 08:00 10/17/16 08:00 10/17/16 07:35 10/17/16 08:00 Intake & Output 10/16/16 10/17/16 10/18/16 06:59 06:59 06:59 Intake Total 1451 260 Output Total 2 0 Balance 1449 260 Weight 43.5 kg 43.1 kg General appearance: PRESENT: no acute distress, thin, well-developed - on BIPAP therapy Head exam: PRESENT: atraumatic, normocephalic Eye exam: PRESENT: conjunctiva pale Ear exam: PRESENT: normal external ear exam Mouth exam: PRESENT: moist, tongue midline Neck exam: ABSENT: carotid bruit, JVD, lymphadenopathy, thyromegaly Respiratory exam: PRESENT: crackles, decreased breath sounds, symmetrical, unlabored. ABSENT: rales, rhonchi, wheezes Cardiovascular exam: PRESENT: RRR, +S1, +S2 Pulses: PRESENT: normal carotid pulses, normal radial pulses GI/Abdominal exam: PRESENT: diminished bowel sounds, soft, tenderness Rectal exam: PRESENT: deferred Gentrourinary exam: PRESENT: lesions, urethral discharge Extremities exam: PRESENT: calf tenderness, clubbing Musculoskeletal exam: PRESENT: ambulatory, full ROM Neurological exam: PRESENT: alert, altered, CN II-XII grossly intact Psychiatric exam: PRESENT: appropriate affect, normal mood. ABSENT: homicidal ideation, suicidal ideation Skin exam: PRESENT: dry, intact, warm. ABSENT: cyanosis, rash Results Laboratory Results: 10/14/16 04:24 10/14/16 04:24 10/13/16 21:15 Clean Catch Midstream Urine Culture - Final Viridans Streptococcus 10/13/16 20:55 Sputum Gram Stain - Final 10/13/16 20:55 Sputum Sputum Culture - Final C.albicans/C.dubliniensis Normal Catie Impressions: Chest X-Ray 10/13/16 10:32 IMPRESSION: COPD. CHRONIC SCARRING. NO DEFINITE ACUTE RADIOGRAPHIC FINDING IN THE CHEST. Assessment & Plan - Diagnosis (1) Sepsis Qualifiers: Sepsis type: sepsis due to unspecified organism Qualified Code(s): A41.9 - Sepsis, unspecified organism Is this a current diagnosis for this admission?: YesPlan: Resolved. She is no longer tachypneic or tachycardic (2) Acute and chronic respiratory failure with hypercapnia Is this a current diagnosis for this admission?: YesPlan: Improved. She is refusing BIPAP therapy, nebulizers, and IV steroids (3) COPD exacerbation Is this a current diagnosis for this admission?: YesPlan: IV steroids and nebulizer treatments, BIPAP support (4) Altered mental status Qualifiers: Altered mental status type: unspecified Qualified Code(s): R41.82 - Altered mental status, unspecified Is this a current diagnosis for this admission?: YesPlan: Baseline dementia,she became very agitated and combative last night. Will add lose dose risperdal (5) Respiratory acidosis Is this a current diagnosis for this admission?: YesPlan: BIPAP therapy until mentation improves (6) Dementia Qualifiers: Dementia type: unspecified type Dementia behavioral disturbance: without behavioral disturbance Qualified Code(s): F03.90 - Unspecified dementia without behavioral disturbance Is this a current diagnosis for this admission?: Yes (7) Tobacco abuse Is this a current diagnosis for this admission?: YesPlan: Nicotine patch (8) Underweight due to inadequate caloric intake Is this a current diagnosis for this admission?: YesPlan: Diet will be liberalized with protein supplements. Daughter states she eats very little. Nutritional supplements provided with each meal (9) DNR (do not resuscitate) Is this a current diagnosis for this admission?: YesPlan: Patient was on hospice service. Patient is a Do Not Resuscitate per daughter (10) Hypertension Qualifiers: Hypertension type: essential hypertension Qualified Code(s): I10 - Essential (primary) hypertension Is this a current diagnosis for this admission?: YesPlan: Continue home medications once mentation improves patient is presently normotensive (11) Hyperthyroidism Is this a current diagnosis for this admission?: Yes - Time Time Spent with patient: 25-34 minutes Critical Time spent with patient: 15-24 minutes Medications reviewed and adjusted accordingly: Yes Anticipated discharge: Home with Homehealth
[2016-10-18] MEDS: OXYCODONE-ACETAMINOPHEN 5-325 MG TABLET PO PRN ×2 (04:15→17:42)
[2016-10-18] MEDS: CYANOCOBALAMIN (VITAMIN B-12) 1,000 MCG TABLET PO SCH (08:15)
[2016-10-18] MEDS: RISPERIDONE 0.25 MG TABLET PO SCH ×2 (08:15→17:36)
[2016-10-18] MEDS: AMLODIPINE BESYLATE 10 MG TABLET PO SCH (08:15)
[2016-10-18] MEDS: METOPROLOL SUCCINATE 25 MG TAB.SR.24H PO SCH (08:15)
[2016-10-18] MEDS ORDERED: ACETAMINOPHEN 325 MG TABLET ONE (08:16)
[2016-10-18] MEDS: DOCUSATE SODIUM 100 MG CAPSULE PO SCH ×2 (08:16→17:36)
[2016-10-18] MEDS: CEFUROXIME 500 MG TABLET PO SCH ×2 (08:16→17:36)
[2016-10-18] MEDS: NICOTINE 14 MG/24 HR PATCH.TD24 TD SCH (08:16)
[2016-10-18] MEDS: ENOXAPARIN SODIUM INJ 30 MG/0.3 ML DISP.SYRIN SUBCUT SCH (08:22)
[2016-10-18] MEDS: IPRATROPIUM/ALBUTEROL 0.5-2.5 MG/3 ML AMPUL NEB SCH ×3 (09:05→23:54)
--- NOTE | 2016-10-18 09:48 | PDOC PROGRESS REPORT ---
Subjective Progress Note for:: 10/18/16 Subjective:: Patient seen on morning rounds. She is presently in bed eating her breakfast. She is far less agitated this morning than yesterday. She was confused on and off last night according to nursing, but not combative. She remains confused which is her baseline mentation. Respirations appeard nonlabored. Review of systems is otherwise unobtainable due to mentation. Physical Exam Vital Signs: Temp Pulse Resp BP Pulse Ox 98.3 F 81 18 159/82 H 100 10/18/16 07:41 10/18/16 09:05 10/18/16 09:05 10/18/16 07:41 10/18/16 09:05 Intake & Output 10/17/16 10/18/16 10/19/16 06:59 06:59 06:59 Intake Total 260 497 Output Total 0 Balance 260 497 Weight 43.1 kg 39.5 kg General appearance: PRESENT: no acute distress, thin, well-developed Head exam: PRESENT: atraumatic, normocephalic Eye exam: PRESENT: conjunctiva pale Ear exam: PRESENT: normal external ear exam Mouth exam: PRESENT: moist, tongue midline Teeth exam: PRESENT: edentulous Neck exam: ABSENT: carotid bruit, JVD, lymphadenopathy, thyromegaly Respiratory exam: PRESENT: crackles, decreased breath sounds, symmetrical, unlabored Cardiovascular exam: PRESENT: RRR. ABSENT: diastolic murmur, rubs, systolic murmur Pulses: PRESENT: normal carotid pulses, normal radial pulses Vascular exam: PRESENT: normal capillary refill GI/Abdominal exam: PRESENT: normal bowel sounds, soft Rectal exam: PRESENT: deferred Extremities exam: PRESENT: full ROM Musculoskeletal exam: PRESENT: ambulatory, full ROM Neurological exam: PRESENT: alert, altered, oriented to person, CN II-XII grossly intact Psychiatric exam: PRESENT: appropriate affect, normal mood. ABSENT: homicidal ideation, suicidal ideation Focused psych exam: PRESENT: restlessness Skin exam: PRESENT: skin tears Results Laboratory Results: 10/14/16 04:24 10/14/16 04:24 Impressions: Chest X-Ray 10/13/16 10:32 IMPRESSION: COPD. CHRONIC SCARRING. NO DEFINITE ACUTE RADIOGRAPHIC FINDING IN THE CHEST. Assessment & Plan - Diagnosis (1) Sepsis Qualifiers: Sepsis type: sepsis due to unspecified organism Qualified Code(s): A41.9 - Sepsis, unspecified organism Is this a current diagnosis for this admission?: YesPlan: Resolved. She is no longer tachypneic or tachycardic (2) Acute and chronic respiratory failure with hypercapnia Is this a current diagnosis for this admission?: YesPlan: Improved. She is refusing BIPAP therapy, nebulizers, and IV steroids (3) COPD exacerbation Is this a current diagnosis for this admission?: YesPlan: IV steroids and nebulizer treatments, BIPAP support (4) Altered mental status Qualifiers: Altered mental status type: unspecified Qualified Code(s): R41.82 - Altered mental status, unspecified Is this a current diagnosis for this admission?: YesPlan: Baseline dementia,she became very agitated and combative last night. Will add lose dose risperdal (5) Respiratory acidosis Is this a current diagnosis for this admission?: YesPlan: BIPAP therapy until mentation improves (6) Dementia Qualifiers: Dementia type: unspecified type Dementia behavioral disturbance: without behavioral disturbance Qualified Code(s): F03.90 - Unspecified dementia without behavioral disturbance Is this a current diagnosis for this admission?: Yes (7) Tobacco abuse Is this a current diagnosis for this admission?: YesPlan: Nicotine patch (8) Underweight due to inadequate caloric intake Is this a current diagnosis for this admission?: YesPlan: Diet will be liberalized with protein supplements. Daughter states she eats very little. Nutritional supplements provided with each meal (9) DNR (do not resuscitate) Is this a current diagnosis for this admission?: YesPlan: Patient was on hospice service. Patient is a Do Not Resuscitate per daughter (10) Hypertension Qualifiers: Hypertension type: essential hypertension Qualified Code(s): I10 - Essential (primary) hypertension Is this a current diagnosis for this admission?: YesPlan: Continue home medications once mentation improves patient is presently normotensive (11) Hyperthyroidism Is this a current diagnosis for this admission?: Yes - Time Time Spent with patient: 25-34 minutes Critical Time spent with patient: 15-24 minutes Medications reviewed and adjusted accordingly: Yes Anticipated discharge: Home with Homehealth Within: within 24 hours
[2016-10-18] MEDS ORDERED: MAG HYDROX/AL HYDROX/SIMETH SUSP 30 ML UDCUP PO PRN (16:02)
[2016-10-18] MEDS ORDERED: ONDANSETRON HCL INJ/PF 4 MG/2 ML SDV IV PRN (16:03)
[2016-10-18] MEDS: ROPINIROLE HCL 0.25 MG TABLET PO SCH (22:01)
[2016-10-19] MEDS: IPRATROPIUM/ALBUTEROL 0.5-2.5 MG/3 ML AMPUL NEB SCH (08:06)
[2016-10-19] MEDS: CYANOCOBALAMIN (VITAMIN B-12) 1,000 MCG TABLET PO SCH (10:37)
[2016-10-19] MEDS: RISPERIDONE 0.25 MG TABLET PO SCH (10:37)
[2016-10-19] MEDS: DOCUSATE SODIUM 100 MG CAPSULE PO SCH (10:37)
[2016-10-19] MEDS: METOPROLOL SUCCINATE 25 MG TAB.SR.24H PO SCH (10:38)
[2016-10-19] MEDS: AMLODIPINE BESYLATE 10 MG TABLET PO SCH (10:38)
[2016-10-19] MEDS: CEFUROXIME 500 MG TABLET PO SCH (10:38)
[2016-10-19] MEDS: OXYCODONE-ACETAMINOPHEN 5-325 MG TABLET PO PRN (10:39)
[2016-10-19] MEDS: NICOTINE 14 MG/24 HR PATCH.TD24 TD SCH (10:39)
[2016-10-19] MEDS: ENOXAPARIN SODIUM INJ 30 MG/0.3 ML DISP.SYRIN SUBCUT SCH (10:41)
[2016-10-19 12:16] VITALS: BP 128/67
--- NOTE | 2016-10-20 08:08 | DISCHARGE SUMMARY E ---
Discharge Summary NAME: GABE ADWSON : 1935 AGE: 81Y ADMITTED: 10/13/2016 DISCHARGED: 10/19/2016 CODE STATUS: DO NOT RESUSCITATE/DO NOT INTUBATE. PRIMARY CARE PROVIDER: Hospice and [facility] Sarm[facility]. DISCHARGE DIAGNOSES: 1. Pjeda-fx-[id number] hypercapnic respiratory failure. 2. Chronic obstructive pulmonary disease exacerbation. 3. Dementia. 4. Tobacco dependency. 5. Hypertension. 6. History of hyperthyroidism. 7. Streptococcus urinary tract infection. 8. Sepsis present on admission secondary to urinary tract infection. 9. DO NOT RESUSCITATE/DO NOT INTUBATE STATUS. DISCHARGE MEDICATIONS: 1. Ceftin 500 mg p.o. b.i.d., 8 tablets, 0 refills. 2. Norvasc 5 mg p.o. daily. 3. Vitamin B12 at 100 mcg p.o. daily. 4. Periactin 4 mg p.o. daily. 5. Nexium 40 mg p.o. daily. 6. Combivent MDI 1 puff inhalation q.i.d. 7. Toprol 25 mg p.o. daily. 8. Remeron 15 mg p.o. before meals and at bedtime. 9. Percocet 5/325 one tablet p.o. t.i.d. p.r.n. 10. Requip 0.5 mg p.o. q hour of sleep. DIET: As tolerated. ACTIVITY: As tolerated. 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 The patient presented to the emergency department with a chief complaint of altered mental status, somnolence, and poor appetite. The patient does reside with her daughter, who states that over the past 3 days she has had a significant decline in overall status, as well as poor appetite and increasing confusion. The patient normally has a congested cough, which is reportedly worse. The daughter notified EMS when she was unable to awaken her mother from sleep. Upon presentation to the emergency department, the patient was found to be hypercapnic with a pCO2 in the 60s and the patient was placed on BiPAP. The patient was noted to be tachycardia with heart rate in the 120s, tachypneic, as well as altered, and was referred to the hospitalists for admission and management. HOSPITAL COURSE: Patient was admitted to [facility]. The patient was hydrated and was started on antibiotic coverage, given the patient had a significant white count. The patient's symptoms improved significantly and the patient was transitioned to baseline. The patient's urine culture did reveal Streptococcus and the patient has responded well to Rocephin. The daughter elected to proceed with hospice services and those have been arranged through social work and the patient is ready for discharge. DIAGNOSTICS: Lab values were as follows: Hematology obtained on 10/14/2016: WBC 12.7, hemoglobin 9.5, hematocrit 27.1, platelet count 268,000. Coagulation obtained on 10/13/2016: PT is 30.4, INR is 0.95. ABG obtained on 10/13/2016 - pH of 7.27, pCO2 is 47.9, pO2 is 63.6, bicarb is 21.4. Chemistry obtained on 10/14/2016: Sodium 140, potassium 4.5, chloride 110, carbon dioxide 20, BUN 31, creatinine 1.34, glucose 144, lactic 1.2, calcium 9.4, magnesium 1.6, bilirubin 0.6, AST 26, ALT 51, alkaline phosphatase 167, total protein 6.6, albumin 3.7. Urinalysis obtained on 10/13/2016: Color yellow, appearance slightly cloudy, pH 5.0, specific gravity 1.010, protein 100, glucose negative, ketones negative, occult blood negative, nitrate negative, bilirubin negative, urobilinogen negative, leukocyte esterase negative, wbc's 2, rbc's 1, bacteria 1, epithelial squamous cells 1, mucus rare, ascorbic acid negative. Blood cultures obtained on 10/13/2016 reveal no growth. Sputum cultures obtained on 10/13/2016 reveal normal jason. Urine culture obtained on 10/13/2016 reveals Streptococcus. Chest x-ray obtained on 10/13/2016 reveals COPD with chronic scarring. PHYSICAL EXAMINATION: GENERAL: On examination, the patient is a frail, chronically ill appearing, 81-year-old female who is awake, alert. She is oriented to person, place, time. She is delayed. Does not appear to be in any acute distress. VITAL SIGNS FOLLOWS: Temperature 98.2, pulse 88, respirations 22, blood pressure 126/83, oxygen saturation 98% on 2 liters nasal cannula. SKIN: Warm and dry, no rashes, not diaphoretic. HEENT: Pupils equal, round and reactive to light and accommodation. Conjunctivae are pink. NECK: There is no JVD. HEART: Regular. There is no murmur or rub. CHEST: Clear, symmetrical, unlabored. ABDOMEN: Soft, nontender, and nondistended. BACK: No CVA tenderness or sacral edema. EXTREMITIES: No clubbing, cyanosis, or edema. DISCHARGE PLAN: The patient is to be referred to home hospice. TIME SPENT: Time spent on this discharge including assessment, plan, physical examination, patient education, and resource alignment is 25 minutes. DICTATING PHYSICIAN: DERICK ALANIZ NP [id number] PHY#: [id number] ID: [id number] JOB#: [id number] ACCT: [id number] cc:Ruddy SIMS NP > MTDD
== END 2016-10-19 12:51 | disposition home or self-care (01) | DRG 871 ==
LOC: ER 10:26 → EH 12:10 → UNDOADMIN 12:10 → EH 12:14 → 4S 17:15 → 3W 19:57
PROVIDERS: ADMIT Family Medicine; ATTEND Family Medicine
PROC: 5A09557 Assistance with Respiratory Ventilation, Greater than 96 Consecutive Hours, Continuous Positive Airway Pressure (ICD-10-PCS; principal; 2016-10-13)
DX: A41.9 Sepsis, unspecified organism (principal); J96.22 Acute and chronic respiratory failure with hypercapnia; J44.1 Chronic obstructive pulmonary disease with (acute) exacerbation; N39.0 Urinary tract infection, site not specified; E87.2 Acidosis; Z68.1 Body mass index [BMI] 19.9 or less, adult; F03.90 Unspecified dementia, unspecified severity, without behavioral disturbance, psychotic disturbance, mood disturbance, and anxiety; B95.5 Unspecified streptococcus as the cause of diseases classified elsewhere; Z66 Do not resuscitate; K21.9 Gastro-esophageal reflux disease without esophagitis; K44.9 Diaphragmatic hernia without obstruction or gangrene; M79.7 Fibromyalgia; E05.90 Thyrotoxicosis, unspecified without thyrotoxic crisis or storm; I25.10 Atherosclerotic heart disease of native coronary artery without angina pectoris; I11.0 Hypertensive heart disease with heart failure; I50.9 Heart failure, unspecified; D64.9 Anemia, unspecified; R63.6 Underweight; F17.210 Nicotine dependence, cigarettes, uncomplicated; R00.0 Tachycardia, unspecified; Z99.81 Dependence on supplemental oxygen; Z90.49 Acquired absence of other specified parts of digestive tract; Z90.710 Acquired absence of both cervix and uterus; Z82.49 Family history of ischemic heart disease and other diseases of the circulatory system; Z79.899 Other long term (current) drug therapy; Z88.0 Allergy status to penicillin; Z91.040 Latex allergy status; Z88.6 Allergy status to analgesic agent
CPT/HCPCS: 36415; 36600; 71020; 80048; 80053; 81001; 82803; 83605; 83735; 85025; 85610; 87040; 87070; 87086; 87205; 93005; 93010; 94640; 94660; 99291; J0692; J1630; J1650; J1956; J2060; J2920; J3490; J7030; J7512; J7620